=== PATIENT | male | born 1950 | race Caucasian/White ===

== ENCOUNTER 2018-06-18 11:09 | Emergency (ER) | payer OTHER ==
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
[2018-06-18] MEDS ORDERED: IOPAMIDOL (ISOVUE 370) 100 ML BTL IV ONE (16:11)
[2018-06-18 18:06] VITALS: BP 142/93
== END 2018-06-18 18:05 | disposition home or self-care (01) ==
DX: R42 Dizziness and giddiness (principal); M54.2 Cervicalgia; M54.5 Low back pain; G89.29 Other chronic pain; E78.5 Hyperlipidemia, unspecified; I10 Essential (primary) hypertension; V49.3XXA Car occupant (driver) (passenger) injured in unspecified nontraffic accident, initial encounter
CPT/HCPCS: 82435-PO; 82565-PO; 82947-PO; 84132-PO; 84295-PO; 84520-PO; 85014-PO; Q9967